=== PATIENT | female | born 1945 | race Caucasian/White ===

== ENCOUNTER 2017-11-03 07:45 | Day surgery (SDC) | payer MEDICARE, BC ==
[2017-11-03] MEDS ORDERED: Lactated Ringers 1,000 ML IV SCH (08:00)
[2017-11-03] MEDS ORDERED: Sodium Chloride 0.9% 10 ML Syringe FLUSH PRN (08:00)
[2017-11-03] MEDS ORDERED: fentaNYL 100 MCG/2 ML SDV ONE ×2 (08:23→09:10)
[2017-11-03] MEDS ORDERED: Midazolam 1 MG/ML 2 ML SDV ONE ×2 (08:23→09:10)
[2017-11-03] MEDS ORDERED: Propofol 200 MG/20 ML SDV ONE ×2 (08:24→09:10)
[2017-11-03] MEDS ORDERED: Lidocaine 2% 5 ML SDV ONE (09:10)
--- NOTE | 2017-11-03 09:14 | PCM.PN ---
- General Info Date of Service: 11/03/17 - Review of Systems Systems Review Comment:: 72-year-old female with history of dysphasia referred for EGD with possible dilation. This patient had esophageal dilation about 2 years ago with improvement in her symptoms. She is again noticing some difficulty swallowing. She is medically stable to proceed today with no significant change in her health status since her recent history and physical which is reviewed. I discussed the proposed upper endoscopy with the patient. She agrees to proceed accepting risks. - Patient Data Vitals - Most Recent: Last Vital Signs Temp 98.2 F 11/03/17 08:27 Pulse 58 L 11/03/17 08:27 Resp 20 11/03/17 08:27 BP 142/70 H 11/03/17 08:27 Pulse Ox 94 L 11/03/17 08:27 Weight - Most Recent: 90.265 kg Med Orders - Current: Current Medications Lactated Ringer's (Ringers, Lactated) 1,000 mls @ 125 mls/hr IV ASDIRECTED LUIS Last Admin: 11/03/17 08:42 Dose: 125 mls/hr Sodium Chloride (Saline Flush) 10 ml FLUSH ASDIRECTED PRN PRN Reason: Keep Vein Open Discontinued Medications Fentanyl (Sublimaze) Confirm Administered Dose 100 mcg .ROUTE .STK-MED ONE Stop: 11/03/17 08:24 Midazolam HCl (Versed 1 Mg/Ml) Confirm Administered Dose 2 mg .ROUTE .STK-MED ONE Stop: 11/03/17 08:24 Propofol (Diprivan 20 Ml) Confirm Administered Dose 200 mg .ROUTE .STK-MED ONE Stop: 11/03/17 08:25 - Problem List Review Problem List Initiated/Reviewed/Updated: Yes - My Orders Last 24 Hours: My Active Orders 11/03/17 08:00 Patient Status [ADT] Routine Peripheral IV Care [RC] . DIRECTED Verify Patient Consent Obtain [RC] ASDIRECTED Lactated Ringers [Ringers, Lactated] 1,000 ml IV ASDIRECTED Sodium Chloride 0.9% [Saline Flush] 10 ml FLUSH ASDIRECTED PRN Peripheral IV Insertion Adult [OM.PC] Routine - Assessment Assessment:: Dysphasia - Plan Plan:: EGD with possible dilation
--- NOTE | 2017-11-03 09:49 | PCM.OPNOTE ---
- General Post-Op/Procedure Note Date of Surgery/Procedure: 11/03/17 Operative Procedure(s): EGD with Bx and Balloon Esophageal Dilation Findings: Mild distal esophageal stricture Small gastric ulcer in antrum Pre Op Diagnosis: Dysphagia Post-Op Diagnosis: Esophageal stricture. Gastric Ulcer Anesthesia Technique: MAC Primary Surgeon: Jovani Stanford Pathology: Biopsies of Gastric Antrum Output, Urine Amount: 0 EBL in mLs: 2 Complications: None Condition: Good
[2017-11-03 10:57] VITALS: BP 136/81
--- NOTE | 2017-11-03 15:29 | OR ---
Date of Procedure: 11/03/2017 PREOPERATIVE DIAGNOSIS: Dysphagia. POSTOPERATIVE DIAGNOSES: Distal esophageal stricture and gastric ulcer. OPERATION PERFORMED: Esophagogastroduodenoscopy with balloon esophageal dilation and biopsy. INDICATIONS FOR SURGERY: This is a 72-year-old female who has been having some increasing symptoms of dysphagia. She did note relief from the symptoms with a previous esophageal dilation, and she comes for repeat upper endoscopy. FINDINGS: The patient has a mild stricture at the GE junction, although the endoscope easily passed this area even prior to dilation. There was mild irritation at the GE junction, but no evidence of extrinsic or intrinsic mass is seen. The remainder of the esophagus including the upper part of the esophagus looked normal as did the oropharynx. In the stomach, the patient had a small gastric ulcer noted in the gastric antrum just above the pylorus anteriorly. There was no active bleeding seen, and the ulcer was shallow and approximately 3 to 4 mm in size. The remainder of the gastric mucosa appeared satisfactory. The duodenum also normal. PROCEDURE IN DETAIL: The patient was taken to the operating room. She was given intravenous sedation, and her throat was topically anesthetized. The esophagus was intubated with the Olympus gastroscope. This was carefully advanced under direct visualization through the esophagus, stomach, and into the duodenum, where examination to the fourth portion was performed. After carefully examining the duodenum, the scope was withdrawn into the stomach where full examination including retroflexed examination of the fundus is performed. A very small ulcer is noted in the gastric antrum, and biopsies of the antrum were taken to rule out H. pylori. The GE junction was then carefully examined, and the small stricture is identified. Since the patient did have improvement of her symptoms with previous dilation, this procedure is again performed today. The Cook dilating balloon is advanced down into the distal esophagus, and the balloon is dilated to 5 atmospheres pressure dilating the balloon to 54-Amharic. This was held in position at the level of the stricture for an extended period of time. The balloon was then released and withdrawn. Careful examination showed no sign of injury to the esophagus. The esophagus was then examined as the scope was withdrawn. The scope was removed, and the patient was taken from the operating room in satisfactory condition. ESTIMATED BLOOD LOSS: 2 mL. COMPLICATIONS: None. PROGNOSIS: Good. ARASH Stanford MD /[id number]
== END 2017-11-03 10:42 | disposition home or self-care (01) ==
LOC: LL.SDS 07:45
PROVIDERS: ATTEND Surgery
DX: K52.9 Noninfective gastroenteritis and colitis, unspecified (principal); K31.9 Disease of stomach and duodenum, unspecified; K22.2 Esophageal obstruction; I10 Essential (primary) hypertension; E78.2 Mixed hyperlipidemia; F43.23 Adjustment disorder with mixed anxiety and depressed mood; Z79.82 Long term (current) use of aspirin; Z79.899 Other long term (current) drug therapy; Z88.2 Allergy status to sulfonamides; Z88.1 Allergy status to other antibiotic agents
CPT/HCPCS: 43233; 43239; J2250; J2704; J3010; J7120; 00731; 88305

== ENCOUNTER 2019-02-10 10:41 | Emergency (ER) | payer BC, MEDICARE, OTHER ==
[2019-02-10 11:14] LABS: CHLORIDE,CL 102 mmol/L (98-107); SODIUM,NA 139 mmol/L (136-145)
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
[2019-02-10] MEDS ORDERED: Potassium Chloride 20 MEQ Tab.ER PO ONE (11:55)
== END 2019-02-10 12:18 | disposition home or self-care (01) ==
LOC: LL.ED 10:41
DX: S80.01XA Contusion of right knee, initial encounter (principal); S80.02XA Contusion of left knee, initial encounter; E87.6 Hypokalemia; I10 Essential (primary) hypertension; E78.5 Hyperlipidemia, unspecified; J44.9 Chronic obstructive pulmonary disease, unspecified; V43.53XA Car driver injured in collision with pick-up truck in traffic accident, initial encounter; Z88.2 Allergy status to sulfonamides; Z88.8 Allergy status to other drugs, medicaments and biological substances; Z79.899 Other long term (current) drug therapy; Z79.82 Long term (current) use of aspirin
CPT/HCPCS: 36000; 36415; 71046; 80053; 81001; 85025; 99285; A9270

== ENCOUNTER 2019-12-19 19:40 | Emergency (ER) | payer MEDICARE, BC ==
[2019-12-19] MEDS: GI Cocktail Oral Solution 30 ML PO ONE (20:07)
[2019-12-19 20:11] LABS: CHLORIDE,CL 103 mmol/L (98-107); SODIUM,NA 138 mmol/L (136-145)
--- NOTE | 2019-12-19 20:52 | EDM.PDOC ---
ED HPI GENERAL MEDICAL PROBLEM - General Chief Complaint: Abdominal Pain Stated Complaint: Abd pain Time Seen by Provider: 12/19/19 19:45 Source of Information: Reports: Patient History Limitations: Reports: No Limitations - History of Present Illness INITIAL COMMENTS - FREE TEXT/NARRATIVE: Pt with epigastric pain for past several days No fever No cough No chest pain Has been taking more medication lately for arthritis pain Pain is in upper abdomen Does not radiate No N/V/D No dysuria - Related Data Allergies Allergy/AdvReac Type Severity Reaction Status Date / Time Sulfa (Sulfonamide Allergy Cannot Unverified 12/19/19 20:06 Antibiotics) Remember noroxin Allergy Unknown GI upset Uncoded 12/19/19 20:06 Home Meds: Home Meds Omeprazole 20 mg PO DAILY 08/24/16 [History] Venlafaxine [Effexor XR] 75 mg PO DAILY 08/24/16 [History] Aspirin 81 mg PO DAILY 11/03/17 [History] hydroCHLOROthiazide [Hydrochlorothiazide] 25 mg PO DAILY 11/03/17 [History] Potassium Chloride [Klor-Con 10] 10 meq PO DAILY #60 tablet.er 02/10/19 [Rx] Acetaminophen [Tylenol Arthritis] 650 mg PO BEDTIME 12/19/19 [History] Leflunomide 20 mg PO DAILY 12/19/19 [History] Magnesium 250 mg PO DAILY 12/19/19 [History] Past Medical History HEENT History: Reports: Impaired Vision Other HEENT History: Glasses Cardiovascular History: Reports: Angina, Hypertension Other Cardiovascular History: Hyperlipidemia/dyslipidemia not under medical therapy, cardiomegaly by chest x-ray, elevated blood pressure with anxiety Respiratory History: Reports: None Other Respiratory History: COPD by chest x-ray Gastrointestinal History: Reports: Cholelithiasis Other Gastrointestinal History: GERD with esophageal stenosis requiring dilatation as below, borderline dysphagia Genitourinary History: Reports: UTI, Recurrent Other Genitourinary History: Possible urolithiasis with spontaneous passage in April 2016 with no physician evaluation at that time, previous left-sided hydronephrosis and additional left ureteral injury at time of hysterectomy as below with subsequent repair, benign renal cysts 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: Dysfunctional Uterine Bleeding, Fibroids, , Spontaneous Other AUTOMOTIVE SERVICE WRITER History: SAB at about 2 months gestation with D&C as below, otherwise Full term without complications during pregnancies or deliveries , surgical menopause as below secondary to uterine fibroids and dysfunctional uterine bleeding Musculoskeletal History: Reports: Arthritis Neurological History: Reports: None Psychiatric History: Reports: Anxiety Other Psychiatric History: 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 Endocrine/Metabolic History: Reports: Obesity/BMI 30+ Hematologic History: Reports: Anemia, Blood Transfusion(s) Other Hematologic History: Blood transfusions after knee surgeries as below Immunologic History: Reports: None Oncologic (Cancer) History: Reports: Squamous Cell Carcinoma Other Oncologic History: Excision of squamous cell carcinoma from the right arm in 2011 Dermatologic History: Reports: None - Infectious Disease History Infectious Disease History: Reports: Chicken Pox, Measles, Mumps - Past Surgical History Other HEENT Surgeries/Procedures: wears glasses GI Surgical History: Reports: Cholecystectomy, Colonoscopy, EGD Female Surgical History: Reports: Hysterectomy, Other (See Below) Other Female Surgeries/Procedures: surgical repair or ureter Musculoskeletal Surgical History: Reports: Knee Replacement - Past Imaging History Past Imaging History: Reports: CAT Scan, Mammogram, MRI, Swallow Study, Ultrasound, Upper GI X-Ray/Series Social & Family History - Family History HEENT: Reports: Macular Degeneration, Other (See Below) Other HEENT Family History: Father with macular degeneration Cardiac: Reports: CAD, Hypertension, [place], Other (See Below) Other Cardiac Family History: Brother with possible fatal IN at age 62, father with coronary artery disease, maternal grandfather with fatal IN at age 71, parents with hypertension Respiratory: Reports: COPD, Other (See Below) Other Respiratory Family Hisory: Brother with COPD with history of tobacco use : Reports: None OBGYN: Reports: Dysfunctional uterine bleeding, Fibroids, Other (See Below) Other OBGYN Family History: Mother with history of hysterectomy at age 32 secondary to dysfunctional uterine bleeding Musculoskeletal: Reports: Gout, Osteoarthritis, Other (See Below) Other Musculoskeletal Family History: Father with osteoarthritis and gout Neurological: Reports: None Psychiatric: Reports: Anxiety, Depression, Suicide Attempt, Other (See Below) Other Psychiatric Family History: Paternal uncle with fatal suicide at age 24, 3 members on paternal aunt's side with suicide, maternal uncle with suicide at age 84 Endocrine/Metabolic: Reports: None Hematologic: Reports: None Immunologic: Reports: None Dermatologic: Reports: None Oncologic: Reports: Other (See Below) Other Oncologic Family History: Mother with laryngeal cancer likely secondary to tobacco use - Caffeine Use Caffeine Use: Reports: Soda Other Caffeine Use: 2 sodas per day - Living Situation & Occupation Living situation: Reports: , with Family Occupation: Retired ED ROS GENERAL - Review of Systems Review Of Systems: See Below HEENT: Reports: No Symptoms Respiratory: Reports: No Symptoms Cardiovascular: Reports: No Symptoms GI/Abdominal: Reports: Abdominal Pain : Reports: No Symptoms Musculoskeletal: Reports: No Symptoms ED EXAM, GI/ABD - Physical Exam Exam: See Below Exam Limited By: No Limitations General Appearance: Alert, No Apparent Distress Throat/Mouth: Normal Oropharynx Neck: Supple Respiratory/Chest: Lungs Clear Cardiovascular: Regular Rate, Rhythm GI/Abdominal Exam: Other (Mildly tender in epigastric area) Extremities: Other (Degenerative changes) Course - Orders/Labs/Meds Labs: Laboratory Tests 12/19/19 12/19/19 Range/Units 19:45 19:45 WBC 9.6 (4.0-10.2) K/uL RBC 4.54 (3.77-5.09) M/uL Hgb 12.8 (11.7-15.5) g/dL Hct 39.7 (34.0-46.0) % MCV 87.4 (84.0-98.0) fL MCH 28.2 (28.2-33.3) pg MCHC 32.2 (31.7-36.0) g/dL RDW 13.8 (11.2-14.1) % Plt Count 225 (150-350) K/uL Neut % (Auto) 63.4 (45.0-80.0) % Lymph % (Auto) 24.2 (10.0-50.0) % [place] % (Auto) 8.9 (2.0-14.0) % Eos % (Auto) 3.0 (0.0-5.0) % Baso % (Auto) 0.5 (0.0-2.0) % Neut # (Auto) 6.07 (1.40-7.00) K/uL Lymph # (Auto) 2.32 (0.50-3.50) K/uL [place] # (Auto) 0.85 (0.00-1.00) K/uL Eos # (Auto) 0.29 (0.00-0.50) K/uL Baso # (Auto) 0.05 (0.00-0.20) K/uL Sodium 138 (136-145) mmol/L Potassium 3.5 (3.5-5.1) mmol/L Chloride 103 (98-107) mmol/L Carbon Dioxide 25.4 (21.0-32.0) mmol/L BUN 21 H (7-18) mg/dL Creatinine 0.91 (0.51-1.17) mg/dL Est Cr Clr Drug Dosing TNP Estimated GFR (MDRD) > 60 mL/min Glucose 150 H (74-106) mg/dL Calcium 9.0 (8.5-10.1) mg/dL Total Bilirubin 0.4 (0.2-1.0) mg/dL AST 27 (15-37) U/L ALT 35 (12-78) U/L Alkaline Phosphatase 87 (46-116) IU/L Total Protein 7.1 (6.4-8.2) g/dL Albumin 3.4 (3.4-5.0) g/dL Amylase 43 (25-115) U/L Lipase 127 (73-393) U/L Meds: Medications Discontinued Medications Generic Name Dose Route Start Last Admin Trade Name Freq PRN Reason Stop Dose Admin Al Hydroxide/Mg Hydroxide 30 ml 12/19/19 19:43 12/19/19 20:07 Gi Cocktail PO 12/19/19 19:44 30 ml ONETIME ONE Administration - Re-Assessments/Exams Free Text/Narrative Re-Assessment/Exam: 12/19/19 20:50 See lab Pt stable in ER Pt given GI cocktail in ER with resolution of symptoms Departure - Departure Time of Disposition: 21:00 Disposition: Home, Self-Care 01 Clinical Impression: Abdominal pain - Discharge Information *PRESCRIPTION DRUG MONITORING PROGRAM REVIEWED*: Not Applicable *COPY OF PRESCRIPTION DRUG MONITORING REPORT IN PATIENT LEODAN: Not Applicable Instructions: Abdominal Pain, Adult, [id number] Additional Instructions: Follow up in clinic Diet as tolerated OTC Prilosec as needed
[2019-12-19 21:43] VITALS: BP 156/96; PULSE 86
== END 2019-12-19 21:15 | disposition home or self-care (01) ==
LOC: LL.ED 19:40
DX: R10.13 Epigastric pain (principal); I10 Essential (primary) hypertension; J44.9 Chronic obstructive pulmonary disease, unspecified; K21.9 Gastro-esophageal reflux disease without esophagitis; F41.9 Anxiety disorder, unspecified; Z88.2 Allergy status to sulfonamides; Z88.8 Allergy status to other drugs, medicaments and biological substances; Z79.82 Long term (current) use of aspirin; Z79.899 Other long term (current) drug therapy
CPT/HCPCS: 36415; 80053; 82150; 83690; 85025; 99284; A9270-GY

== ENCOUNTER 2020-07-05 19:30 | Emergency (ER) | payer MEDICARE, BC ==
[2020-07-05 19:38] VITALS: PULSE 96
[2020-07-05 20:16] LABS: CHLORIDE,CL 99 mmol/L (98-107); SODIUM,NA 135 mmol/L (136-145)
--- NOTE | 2020-07-05 20:37 | EDM.PDOC ---
ED HPI GENERAL MEDICAL PROBLEM - General Chief Complaint: General Stated Complaint: FEVER Time Seen by Provider: 07/05/20 20:00 Source of Information: Reports: Patient History Limitations: Reports: No Limitations - History of Present Illness INITIAL COMMENTS - FREE TEXT/NARRATIVE: Patient comes to ER with concerns of low grade temp at home that started later this afternoon. Mildly achy. Noticed she sneezed more than usual today. Also reports several episodes of more frequent urination. No hematuria or burning with urination. Denies headache/sore throat/congestion. No cough/wheeze/SOB. Eating and drinking normally. No nausea/emesis/bowel changes. No abdominal/back pain. No other reported changes. No obvious exposures to others who are currently ill. Bilateral Shoulder Pain Score (Numeric/FACES): 5 - Related Data Allergies Allergy/AdvReac Type Severity Reaction Status Date / Time Sulfa (Sulfonamide Allergy Cannot Verified 06/10/20 14:04 Antibiotics) Remember noroxin Allergy Unknown GI upset Uncoded 06/10/20 14:04 Home Meds: Home Meds Omeprazole 20 mg PO DAILY 08/24/16 [History] Venlafaxine [Effexor XR] 75 mg PO DAILY 08/24/16 [History] Aspirin 81 mg PO DAILY 11/03/17 [History] hydroCHLOROthiazide [Hydrochlorothiazide] 25 mg PO DAILY 11/03/17 [History] Potassium Chloride [Klor-Con 10] 10 meq PO DAILY #60 tablet.er 02/10/19 [Rx] Acetaminophen [Tylenol Arthritis] 650 mg PO BEDTIME 12/19/19 [History] Leflunomide 20 mg PO DAILY 12/19/19 [History] Magnesium 250 mg PO DAILY 12/19/19 [History] Past Medical History HEENT History: Reports: Impaired Vision Other HEENT History: Glasses Cardiovascular History: Reports: Angina, Hypertension Other Cardiovascular History: Hyperlipidemia/dyslipidemia not under medical therapy, cardiomegaly by chest x-ray, elevated blood pressure with anxiety Respiratory History: Reports: None Other Respiratory History: COPD by chest x-ray Gastrointestinal History: Reports: Cholelithiasis Other Gastrointestinal History: GERD with esophageal stenosis requiring dilatation as below, borderline dysphagia Genitourinary History: Reports: UTI, Recurrent Other Genitourinary History: Possible urolithiasis with spontaneous passage in April 2016 with no physician evaluation at that time, previous left-sided hydronephrosis and additional left ureteral injury at time of hysterectomy as below with subsequent repair, benign renal cysts 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: Dysfunctional Uterine Bleeding, Fibroids, , Spontaneous Other GREEN PIPEFITTER History: SAB at about 2 months gestation with D&C as below, otherwise Full term without complications during pregnancies or deliveries, surgical menopause as below secondary to uterine fibroids and dysfunctional uterine bleeding Musculoskeletal History: Reports: Arthritis Neurological History: Reports: None Psychiatric History: Reports: Anxiety Other Psychiatric History: 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 Endocrine/Metabolic History: Reports: Obesity/BMI 30+ Hematologic History: Reports: Anemia, Blood Transfusion(s) Other Hematologic History: Blood transfusions after knee surgeries as below Immunologic History: Reports: None Oncologic (Cancer) History: Reports: Squamous Cell Carcinoma Other Oncologic History: Excision of squamous cell carcinoma from the right arm in 2011 Dermatologic History: Reports: None - Infectious Disease History Infectious Disease History: Reports: Chicken Pox, Measles, Mumps - Past Surgical History Head Surgeries/Procedures: Reports: None Other HEENT Surgeries/Procedures: wears glasses GI Surgical History: Reports: Cholecystectomy, Colonoscopy, EGD Female Surgical History: Reports: Hysterectomy, Other (See Below) Other Female Surgeries/Procedures: surgical repair or ureter Musculoskeletal Surgical History: Reports: Knee Replacement - Past Imaging History Past Imaging History: Reports: CAT Scan, Mammogram, MRI, Swallow Study, Ultrasound, Upper GI X-Ray/Series Social & Family History - Family History HEENT: Reports: Macular Degeneration, Other (See Below) Other HEENT Family History: Father with macular degeneration Cardiac: Reports: CAD, Hypertension, [place], Other (See Below) Other Cardiac Family History: Brother with possible fatal IA at age 62, father with coronary artery disease, maternal grandfather with fatal IA at age 71, parents with hypertension Respiratory: Reports: COPD, Other (See Below) Other Respiratory Family Hisory: Brother with COPD with history of tobacco use : Reports: None OBGYN: Reports: Dysfunctional uterine bleeding, Fibroids, Other (See Below) Other OBGYN Family History: Mother with history of hysterectomy at age 32 secondary to dysfunctional uterine bleeding Musculoskeletal: Reports: Gout, Osteoarthritis, Other (See Below) Other Musculoskeletal Family History: Father with osteoarthritis and gout Neurological: Reports: None Psychiatric: Reports: Anxiety, Depression, Suicide Attempt, Other (See Below) Other Psychiatric Family History: Paternal uncle with fatal suicide at age 24, 3 members on paternal aunt's side with suicide, maternal uncle with suicide at age 84 Endocrine/Metabolic: Reports: None Hematologic: Reports: None Immunologic: Reports: None Dermatologic: Reports: None Oncologic: Reports: Other (See Below) Other Oncologic Family History: Mother with laryngeal cancer likely secondary to tobacco use - Tobacco Use Tobacco Use Status *Q: Never Tobacco User - Caffeine Use Caffeine Use: Reports: Soda Other Caffeine Use: 2 sodas per day - Living Situation & Occupation Living situation: Reports: , with Family Occupation: Retired ED ROS GENERAL - Review of Systems Review Of Systems: Comprehensive ROS is negative, except as noted in HPI. ED EXAM, GENERAL - Physical Exam Exam: See Below Exam Limited By: No Limitations General Appearance: Alert, WD/WN, Anxious, Obese Eye Exam: Bilateral Eye: EOMI, PERRL Ears: Hearing Grossly Normal Nose: Normal Inspection Throat/Mouth: Normal Inspection, Normal Lips, Normal Oropharynx, Normal Voice, No Airway Compromise Head: Atraumatic, Normocephalic Neck: Normal Inspection, Supple, Non-Tender, Full Range of Motion. No: Lymphadenopathy (L), Lymphadenopathy (R) Respiratory/Chest: No Respiratory Distress, Normal Breath Sounds, No Accessory Muscle Use, Chest Non-Tender Cardiovascular: Regular Rate, Rhythm, No Murmur GI/Abdominal: Normal Bowel Sounds, Soft, Non-Tender, No Distention (Female) Exam: Deferred Rectal (Female) Exam: Deferred Back Exam: No: CVA Tenderness (L), CVA Tenderness (R), Muscle Spasm, Paraspinal Tenderness, Vertebral Tenderness Extremities: Normal Inspection, Normal Capillary Refill Neurological: Alert, Oriented, Normal Cognition, Normal Gait, No Motor/Sensory Deficits Psychiatric: Anxious (mild) Skin Exam: Warm, Dry, Intact, Normal Color Course - Vital Signs Last Recorded V/S: Last Vital Signs Temp 37.7 C 07/05/20 19:30 Pulse 96 07/05/20 19:30 Resp 18 07/05/20 19:30 BP 148/70 H 07/05/20 20:00 Pulse Ox 98 07/05/20 19:30 - Orders/Labs/Meds Orders: Active Orders 24 hr Category Date Time Status CORONAVIRUS COVID-19 YOANNA [MOLEC] Routine Lab 07/05/20 20:30 Ordered CULTURE URINE [RM] Routine Lab 07/05/20 20:31 Ordered Isolation [COMM] Routine Oth 07/05/20 20:30 Ordered Labs: Laboratory Tests 07/05/20 07/05/20 07/05/20 Range/Units 19:40 19:55 19:55 WBC 6.5 (4.0-10.2) K/uL RBC 4.57 (3.77-5.09) M/uL Hgb 12.7 (11.7-15.5) g/dL Hct 39.3 (34.0-46.0) % MCV 86.0 (84.0-98.0) fL MCH 27.8 L (28.2-33.3) pg MCHC 32.3 (31.7-36.0) g/dL RDW 14.1 (11.2-14.1) % Plt Count 166 (150-350) K/uL Neut % (Auto) 46.6 (45.0-80.0) % Lymph % (Auto) 30.1 (10.0-50.0) % [place] % (Auto) 19.3 H (2.0-14.0) % Eos % (Auto) 3.2 (0.0-5.0) % Baso % (Auto) 0.8 (0.0-2.0) % Neut # (Auto) 3.04 (1.40-7.00) K/uL Lymph # (Auto) 1.96 (0.50-3.50) K/uL [place] # (Auto) 1.26 H (0.00-1.00) K/uL Eos # (Auto) 0.21 (0.00-0.50) K/uL Baso # (Auto) 0.05 (0.00-0.20) K/uL Sodium 135 L (136-145) mmol/L Potassium 3.5 (3.5-5.1) mmol/L Chloride 99 (98-107) mmol/L Carbon Dioxide 25.3 (21.0-32.0) mmol/L BUN 19 H (7-18) mg/dL Creatinine 0.90 (0.51-1.17) mg/dL Est Cr Clr Drug Dosing 47.36 mL/min Estimated GFR (MDRD) > 60 mL/min Glucose 122 H (74-106) mg/dL Calcium 8.3 L (8.5-10.1) mg/dL Specimen Type Urinvoid Urine Color Yellow Urine Appearance Clear Urine pH 7.0 (5.0-9.0) Ur Specific [place] 1.025 (1.005-1.030) Urine Protein Negative (NEGATIVE) mg/dL Urine Glucose (UA) Negative (NEGATIVE) mg/dL Urine Ketones Negative (NEGATIVE) mg/dL Urine Occult Blood Trace-intact H (NEGATIVE) Urine Nitrite Negative (NEGATIVE) Urine Bilirubin Negative (NEGATIVE) Urine Urobilinogen 0.2 (0.2-1.0) E.U./dL Ur Leukocyte Esterase Negative (NEGATIVE) Urine RBC 0-5 /HPF Urine WBC 5-10 H /HPF Ur Epithelial Cells Few /LPF Urine Bacteria Few (NONE TO FEW) /HPF - Re-Assessments/Exams Free Text/Narrative Re-Assessment/Exam: 07/05/20 20:31 WBC normal. Labs overall unremarkable. Very small amount white cells noted in UA specimen. No obvious UTI. Sent for culture. Discussed options with patient. May be developing URI/other viral illness. She wished to rule out possible Covid as well as Influenza. Screening tests ordered. If influenza negative patient will return home and await results for Covid test when it is ru n tomorrow at our lab. Follow up as needed if Covid test ends up being positive. No other intervention indicated at this time. Precautions reviewed. Patient comfortable with plan. 07/05/20 21:14 Influenza screen negative. Departure - Departure Time of Disposition: 21:10 Disposition: Home, Self-Care 01 Condition: Good Clinical Impression: Ill feeling - Discharge Information *PRESCRIPTION DRUG MONITORING PROGRAM REVIEWED*: Not Applicable *COPY OF PRESCRIPTION DRUG MONITORING REPORT IN PATIENT LEODAN: Not Applicable Referrals: Felicita Moody PA-C [Primary Care Provider] - Forms: ED Department Discharge Additional Instructions: Your Influenza screens were negative. They will run the Covid test tomorrow and nursing will call you with results. If it is negative, continue to observe for changes. If it is positive, the nurse will discuss what steps you need to take next. This may be a developing "normal" cold/respiratory virus. If for some reason you feel that you are having more problems urinating, please contact us. We do have a urine culture running that takes a few days to perform, but if you get obviously worse symptoms we can put you on an antibiotic. Follow up otherwise as needed. Sepsis Event Note (ED) - Evaluation Sepsis Screening Result: Possible Sepsis Risk - Focused Exam Vital Signs: Vital Signs Temp Pulse Resp BP Pulse Ox 07/05/20 20:00 148/70 H 07/05/20 19:45 133/104 H 07/05/20 19:30 37.7 C 96 18 148/115 H 98 - My Orders Last 24 Hours: My Active Orders 07/05/20 20:30 CORONAVIRUS COVID-19 YOANNA [MOLEC] Routine Isolation [COMM] Routine 07/05/20 20:31 CULTURE URINE [RM] Routine - Assessment/Plan Last 24 Hours: My Active Orders 07/05/20 20:30 CORONAVIRUS COVID-19 YOANNA [MOLEC] Routine Isolation [COMM] Routine 07/05/20 20:31 CULTURE URINE [RM] Routine
[2020-07-05 21:02] VITALS: BP 148/70
== END 2020-07-05 21:15 | disposition home or self-care (01) ==
LOC: LL.ED 19:30
DX: R69 Illness, unspecified (principal); J44.9 Chronic obstructive pulmonary disease, unspecified; K21.9 Gastro-esophageal reflux disease without esophagitis; F41.9 Anxiety disorder, unspecified; E66.9 Obesity, unspecified; Z88.2 Allergy status to sulfonamides; Z88.1 Allergy status to other antibiotic agents; Z79.82 Long term (current) use of aspirin; Z79.899 Other long term (current) drug therapy; Z90.49 Acquired absence of other specified parts of digestive tract; Z90.710 Acquired absence of both cervix and uterus; Z68.34 Body mass index [BMI] 34.0-34.9, adult
CPT/HCPCS: 36415; 80048; 81001; 85025; 87086; 87088; 87186; 87804; 99283; U0002

== ENCOUNTER 2021-05-10 16:51 | Emergency (ER) | payer MEDICARE, OTHER ==
[2021-05-10 17:33] LABS: ANION GAP 7.3 meq/L (7-15)
[2021-05-10 17:42] VITALS: BP 177/79; PULSE 78
--- NOTE | 2021-05-10 17:45 | EDM.PDOC ---
ED HPI GENERAL MEDICAL PROBLEM - General Chief Complaint: Upper Extremity Injury/Pain Stated Complaint: Right arm swelling Time Seen by Provider: 05/10/21 17:02 Source of Information: Reports: Patient History Limitations: Reports: No Limitations - History of Present Illness INITIAL COMMENTS - FREE TEXT/NARRATIVE: Patient came in to have several things evaluated. First, had itchy fore arm yesterday/earlier today and noted some puffiness around the wrist and hand area develop. Similar problem in past with left arm but all the symptoms resolved within short time on their own. No new chemical contacts and no insect bites. No pain in affected arm. Second concern is small red area on back of hand that is mildly scabbed. No drainage per patient. No pain. Says she had a staff infection once on her head and wanted to know if this could be staph too. It was noted during interview that pt has a few small red lesions that are similar lateral to right side of mouth but she says she has those "all the time". Hx includes rheumatoid arthritis. - Related Data Allergies Allergy/AdvReac Type Severity Reaction Status Date / Time Sulfa (Sulfonamide Allergy Cannot Verified 12/02/20 15:45 Antibiotics) Remember noroxin Allergy Unknown GI upset Uncoded 12/02/20 15:45 Home Meds: Home Meds Omeprazole 20 mg PO DAILY 08/24/16 [History] Venlafaxine [Effexor XR] 75 mg PO DAILY 08/24/16 [History] Aspirin 81 mg PO DAILY 11/03/17 [History] hydroCHLOROthiazide [Hydrochlorothiazide] 25 mg PO DAILY 11/03/17 [History] Potassium Chloride [Klor-Con 10] 10 meq PO DAILY #60 tablet.er 02/10/19 [Rx] Acetaminophen [Tylenol Arthritis] 650 mg PO BEDTIME 12/19/19 [History] Leflunomide 20 mg PO DAILY 12/19/19 [History] Magnesium 250 mg PO DAILY 12/19/19 [History] Mupirocin Oint [Bactroban Oint] 22 gm .XX BID #1 gm 05/10/21 [Rx] Past Medical History HEENT History: Reports: Impaired Vision Other HEENT History: Glasses Cardiovascular History: Reports: Angina, Hypertension Other Cardiovascular History: Hyperlipidemia/dyslipidemia not under medical therapy, cardiomegaly by chest x-ray, elevated blood pressure with anxiety Respiratory History: Reports: None Other Respiratory History: COPD by chest x-ray Gastrointestinal History: Reports: Cholelithiasis Other Gastrointestinal History: GERD with esophageal stenosis requiring dilatation as below, borderline dysphagia Genitourinary History: Reports: UTI, Recurrent Other Genitourinary History: Possible urolithiasis with spontaneous passage in April 2016 with no physician evaluation at that time, previous left-sided hydronephrosis and additional left ureteral injury at time of hysterectomy as below with subsequent repair, benign renal cysts [employer]ING [employer] GLAZE [employer]KER History: Reports: Dysfunctional Uterine Bleeding, Fibroids, , Spontaneous Other [employer]ZE [employer] History: SAB at about 2 months gestation with D&C as below, otherwise Full term without complications during pregnancies or deliveries, surgical menopause as below secondary to uterine fibroids and dysfunctional uterine bleeding Musculoskeletal History: Reports: Arthritis, RA Neurological History: Reports: None Psychiatric History: Reports: Anxiety Other Psychiatric History: 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 Endocrine/Metabolic History: Reports: Obesity/BMI 30+ Hematologic History: Reports: Anemia, Blood Transfusion(s) Other Hematologic History: Blood transfusions after knee surgeries as below Immunologic History: Reports: None Oncologic (Cancer) History: Reports: Squamous Cell Carcinoma Other Oncologic History: Excision of squamous cell carcinoma from the right arm in 2011 Dermatologic History: Reports: None - Infectious Disease History Infectious Disease History: Reports: Chicken Pox, Measles, Mumps - Past Surgical History Head Surgeries/Procedures: Reports: None HEENT Surgical History: Reports: Oral Surgery, Other (See Below) Other HEENT Surgeries/Procedures: wears glasses Cardiovascular Surgical History: Reports: None Respiratory Surgical History: Reports: None GI Surgical History: Reports: Cholecystectomy, Colonoscopy, EGD Other GI Surgeries/Procedures: Laparoscopic cholecystectomy on 07/19/06, colonoscopy with additional EGD with lower esophageal dilatation on 10/10/14 Female Surgical History: Reports: Hysterectomy, Other (See Below) Other Female Surgeries/Procedures: surgical repair or ureter Endocrine Surgical History: Reports: None Neurological Surgical History: Reports: None Musculoskeletal Surgical History: Reports: Knee Replacement Other Musculoskeletal Surgeries/Procedures:: Right total knee arthroplasty and left partial knee arthroplasty in 2007 Oncologic Surgical History: Reports: None Dermatological Surgical History: Reports: Skin Biopsy - Past Imaging History Past Imaging History: Reports: CAT Scan, Mammogram, MRI, Swallow Study, Ultrasound, Upper GI X-Ray/Series Social & Family History - Family History HEENT: Reports: Macular Degeneration, Other (See Below) Other HEENT Family History: Father with macular degeneration Cardiac: Reports: CAD, Hypertension, OR, Other (See Below) Other Cardiac Family History: Brother with possible fatal OR at age 62, father with coronary artery disease, maternal grandfather with fatal OR at age 71, parents with hypertension Respiratory: Reports: COPD, Other (See Below) Other Respiratory Family Hisory: Brother with COPD with history of tobacco use : Reports: None OBGYN: Reports: Dysfunctional uterine bleeding, Fibroids, Other (See Below) Other OBGYN Family History: Mother with history of hysterectomy at age 32 secondary to dysfunctional uterine bleeding Musculoskeletal: Reports: Gout, Osteoarthritis, Other (See Below) Other Musculoskeletal Family History: Father with osteoarthritis and gout Neurological: Reports: None Psychiatric: Reports: Anxiety, Depression, Suicide Attempt, Other (See Below) Other Psychiatric Family History: Paternal uncle with fatal suicide at age 24, 3 members on paternal aunt's side with suicide, maternal uncle with suicide at age 84 Endocrine/Metabolic: Reports: None Hematologic: Reports: None Immunologic: Reports: None Dermatologic: Reports: None Oncologic: Reports: Other (See Below) Other Oncologic Family History: Mother with laryngeal cancer likely secondary to tobacco use - Caffeine Use Caffeine Use: Reports: Soda Other Caffeine Use: 2 sodas per day - Living Situation & Occupation Living situation: Reports: , with Family Occupation: Retired Review of Systems - Review of Systems Review Of Systems: Comprehensive ROS is negative, except as noted in HPI. ED EXAM, GENERAL - Physical Exam Exam: See Below Exam Limited By: No Limitations General Appearance: Alert, No Apparent Distress, Obese Eye Exam: Bilateral Eye: EOMI, PERRL Ears: Normal External Exam, Normal Canal, Hearing Grossly Normal Nose: No: Nasal Deformity, Nasal Swelling, Nasal Drainage Throat/Mouth: Normal Lips, Normal Voice, No Airway Compromise Head: Atraumatic, Normocephalic Neck: Supple, Non-Tender, Full Range of Motion Respiratory/Chest: No Respiratory Distress, Lungs Clear, Normal Breath Sounds, No Accessory Muscle Use, Chest Non-Tender Cardiovascular: Normal Peripheral Pulses, Regular Rate, Rhythm, No Murmur GI/Abdominal: Soft, Non-Tender (Female) Exam: Deferred Rectal (Female) Exam: Deferred Back Exam: No: CVA Tenderness (L), CVA Tenderness (R), Muscle Spasm Extremities: Normal Range of Motion, Normal Capillary Refill, Other (minimal swelling noted around dorsal right wrist/hand. No rash. Not warm to touch. Wrist/fingers full ROM. ) Neurological: Alert, Oriented, Normal Cognition, Normal Gait Psychiatric: Normal Affect, Normal Mood Skin Exam: Warm, Dry, Other (single small round red lesion back of right upper arm. No vesicle/pustule/drainage. No excoriation. Simlar appear lesions near lateral corner mouth on right ) Course - Vital Signs Last Recorded V/S: Last Vital Signs Temp 36.9 C 05/10/21 17:20 Pulse 78 05/10/21 17:20 Resp BP 177/79 H 05/10/21 17:20 Pulse Ox - Orders/Labs/Meds Labs: Laboratory Tests 05/10/21 05/10/21 05/10/21 Range/Units 17:20 17:20 17:20 WBC 10.4 H (4.0-10.2) K/uL RBC 4.77 (3.77-5.09) M/uL Hgb 13.5 (11.7-15.5) g/dL Hct 41.4 (34.0-46.0) % MCV 86.8 (84.0-98.0) fL MCH 28.3 (28.2-33.3) pg MCHC 32.6 (31.7-36.0) g/dL RDW 13.2 (11.2-14.1) % Plt Count 262 D (150-350) K/uL Neut % (Auto) 54.5 (45.0-80.0) % Lymph % (Auto) 31.7 (10.0-50.0) % [place] % (Auto) 8.9 (2.0-14.0) % Eos % (Auto) 4.3 (0.0-5.0) % Baso % (Auto) 0.6 (0.0-2.0) % Neut # (Auto) 5.66 (1.40-7.00) K/uL Lymph # (Auto) 3.30 (0.50-3.50) K/uL [place] # (Auto) 0.93 (0.00-1.00) K/uL Eos # (Auto) 0.45 (0.00-0.50) K/uL Baso # (Auto) 0.06 (0.00-0.20) K/uL D-Dimer, Quantitative 2560 H (0-400) ng/mL Sodium 142 (136-145) mmol/L Potassium 3.9 (3.5-5.1) mmol/L Chloride 106 (98-107) mmol/L Carbon Dioxide 28.7 (21.0-32.0) mmol/L Anion Gap 7.3 (7-15) meq/L BUN 18 (7-18) mg/dL Creatinine 1.02 (0.51-1.17) mg/dL Est Cr Clr Drug Dosing 41.15 mL/min Estimated GFR (MDRD) 53 mL/min Glucose 107 H (70-99) mg/dL Calcium 8.8 (8.5-10.1) mg/dL Total Bilirubin 0.2 (0.2-1.0) mg/dL AST 24 (15-37) U/L ALT 31 (12-78) U/L Alkaline Phosphatase 112 (46-116) IU/L Total Protein 7.0 (6.4-8.2) g/dL Albumin 3.3 L (3.4-5.0) g/dL Meds: Medications Discontinued Medications Generic Name Dose Route Start Last Admin Trade Name Freq PRN Reason Stop Dose Admin Famotidine 10 mg 05/10/21 17:58 05/10/21 18:11 Famotidine 10 Mg Tab PO 05/10/21 17:59 10 mg ONETIME ONE Administration Loratadine 10 mg 05/10/21 17:58 05/10/21 18:11 Loratadine 10 Mg Tab PO 05/10/21 17:59 10 mg ONETIME ONE Administration - Re-Assessments/Exams Free Text/Narrative Re-Assessment/Exam: 05/10/21 20:33 WBC minimall above normal. Labs otherwise normal other than elevated ddimer. Patient reported that swelling was improving on its own in wrist area. Uncertain as to cause. May be allergic in nature or related to patient's RA. Does not appear to be acting like a blood clot. Plan at this time is to give Claritin and Pepcid. Rx for Bactroban to be used on the skin lesions. Patient is to observe for changes in both the skin lesion and the hand/wrist swelling. She did not want to go to [facility] for US study to formally rule out a blood clot in affected limb but is willing to return to our facility tomorrow and be scanned. To follow up with PCP for ongoing care. Patient agreeable with plan. Departure - Departure Time of Disposition: 17:44 Disposition: Home, Self-Care 01 Condition: Good Clinical Impression: Rash and nonspecific skin eruption, Arm swelling - Discharge Information *PRESCRIPTION DRUG MONITORING PROGRAM REVIEWED*: Not Applicable *COPY OF PRESCRIPTION DRUG MONITORING REPORT IN PATIENT LEODAN: Not Applicable Prescriptions: Mupirocin Oint [Bactroban Oint] 22 gm .XX BID #1 gm Referrals: Felicita Moody PA-C [Primary Care Provider] - Forms: ED Department Discharge Additional Instructions: supervisor clam bed the antibiotic ointment tomorrow and apply it to the area of skin on your arm/see if that helps that spot. We have asked for you to get an appointment with ultrasound tomorrow so that they can make sure there is no clot affecting the right arm. If itching/swelling persist, follow up with your primary clinic provider and/or vegetable loader machine operator as we discussed. Return to ER if you have sudden worsening changes. Get your blood pressure checked a few times over the next few weeks! It was running high today. You may need medication adjustment! Sepsis Event Note (ED) - Evaluation Sepsis Screening Result: No Definite Risk - Focused Exam Vital Signs: Vital Signs Temp Pulse BP 05/10/21 17:20 36.9 C 78 177/79 H
[2021-05-10] MEDS ORDERED: Loratadine 10 MG Tab PO ONE (17:58)
[2021-05-10] MEDS ORDERED: Famotidine 10 MG Tab PO ONE (17:58)
== END 2021-05-10 18:15 | disposition home or self-care (01) ==
LOC: LL.ED 16:51
DX: R21 Rash and other nonspecific skin eruption (principal); M79.89 Other specified soft tissue disorders; I10 Essential (primary) hypertension; K21.9 Gastro-esophageal reflux disease without esophagitis; J44.9 Chronic obstructive pulmonary disease, unspecified; E66.9 Obesity, unspecified; Z88.2 Allergy status to sulfonamides; Z88.8 Allergy status to other drugs, medicaments and biological substances; Z79.899 Other long term (current) drug therapy; Z68.34 Body mass index [BMI] 34.0-34.9, adult
CPT/HCPCS: 36415; 80053; 85025; 85379; 99283; A9270-GY

== ENCOUNTER 2022-04-22 21:38 | Emergency (ER) | payer MEDICARE, OTHER ==
[2022-04-22 22:17] LABS: ANION GAP 9.6 meq/L (7-15); CHLORIDE,CL 103 mmol/L (98-107); SODIUM,NA 136 mmol/L (136-145)
[2022-04-22 22:20] LABS: ESTIMATED GFR 53 mL/min (>=60)
[2022-04-22] MEDS ORDERED: Acetaminophen 325 MG Tab PO ONE (22:46)
[2022-04-22 23:09] VITALS: BP 158/74; PULSE 84
== END 2022-04-22 23:09 | disposition home or self-care (01) ==
LOC: LL.ED 21:38
DX: U07.1 COVID-19 (principal); J44.9 Chronic obstructive pulmonary disease, unspecified; I10 Essential (primary) hypertension; E66.9 Obesity, unspecified; Z68.30 Body mass index [BMI] 30.0-30.9, adult; Z88.2 Allergy status to sulfonamides; Z88.8 Allergy status to other drugs, medicaments and biological substances; Z79.899 Other long term (current) drug therapy; Z79.82 Long term (current) use of aspirin; Z90.49 Acquired absence of other specified parts of digestive tract; Z90.710 Acquired absence of both cervix and uterus
CPT/HCPCS: 36415; 80053; 81001; 83735; 85025; 87086; 87088; 87186; 99284

== ENCOUNTER 2022-12-02 17:42 | Emergency (ER) | payer MEDICARE, OTHER ==
[2022-12-02] MEDS ORDERED: Sodium Chloride 0.9% 10 ML Syringe FLUSH PRN (17:44)
[2022-12-02] MEDS ORDERED: Aspirin 81 MG Tab.Chew PO ONE (17:47)
[2022-12-02] MEDS ORDERED: Acetaminophen 325 MG Tab PO ONE (18:40)
[2022-12-02] MEDS ORDERED: Acetaminophen 500 MG Tab PO ONE (18:48)
[2022-12-02 18:54] LABS: CHLORIDE,CL 102 mmol/L (98-107); SODIUM,NA 141 mmol/L (136-145)
[2022-12-02 18:56] LABS: ANION GAP 18.1 meq/L (7-15); ESTIMATED GFR 60 mL/min (>=60)
[2022-12-02 20:20] VITALS: BP 140/71; PULSE 81
[2022-12-02] MEDS ORDERED: Sodium Chloride 0.9% 500 ML IV SCH (20:45)
[2022-12-02] MEDS ORDERED: Potassium Chloride 20 MEQ Tab.ER PO ONE (20:46)
[2022-12-02] MEDS ORDERED: Magnesium Oxide 400 MG Tab PO ONE (20:46)
== END 2022-12-02 21:40 | disposition home or self-care (01) ==
LOC: LL.ED 17:42
DX: M25.511 Pain in right shoulder (principal); I10 Essential (primary) hypertension; J44.9 Chronic obstructive pulmonary disease, unspecified; E78.5 Hyperlipidemia, unspecified; E66.9 Obesity, unspecified; Z68.30 Body mass index [BMI] 30.0-30.9, adult; Z88.2 Allergy status to sulfonamides; Z88.8 Allergy status to other drugs, medicaments and biological substances; Z79.899 Other long term (current) drug therapy; Z79.82 Long term (current) use of aspirin
CPT/HCPCS: 36415; 71046; 80053; 83605; 83735; 83880; 84443; 84484; 85025; 85379; 85610; 93005; 93010; 99284; A9270-GY

== ENCOUNTER 2024-04-13 14:24 | Emergency (ER) | payer MEDICARE, OTHER ==
[2024-04-13 14:45] LABS: BASOPHILS ABSOLUTE AUTO 0.09 K/uL (0.00-0.20); BASOPHILS PERCENT AUTO 0.9 % (0.0-2.0); EOSINOPHILS ABSOLUTE AUTO 0.38 K/uL (0.00-0.50); EOSINOPHILS PERCENT AUTO 3.7 % (0.0-5.0); HEMATOCRIT 40.4 % (34.0-46.0); HEMOGLOBIN 12.9 g/dL (11.7-15.5); LYMPHOCYTES ABSOLUTE AUTO 3.75 K/uL (0.50-3.50); LYMPHOCYTES PERCENT AUTO 36.5 % (10.0-50.0); MEAN CORPUSCULAR HEMOGLOBIN 28.8 pg (28.2-33.3); MEAN CORPUSCULAR HGB CONC 31.9 g/dL (31.7-36.0); MEAN CORPUSCULAR VOLUME 90.2 fL (84.0-98.0); MONOCYTES ABSOLUTE AUTO 0.93 K/uL (0.00-1.00); NEUTROPHILS ABSOLUTE AUTO 5.13 K/uL (1.40-7.00); NEUTROPHILS PERCENT AUTO 49.9 % (45.0-80.0); PLATELET COUNT,PLT 264 K/uL (150-350); RED BLOOD CELL COUNT 4.48 M/uL (3.77-5.09); RED CELL DISTRIBUTION WIDTH 13.2 % (11.2-14.1); WHITE BLOOD CELL COUNT,WBC 10.3 K/uL (4.0-10.2)
[2024-04-13] MEDS ORDERED: Aspirin 81 MG Tab.Chew PO ONE (15:03)
[2024-04-13 15:07] LABS: LACTIC ACID 0.7 mmol/L (0.4-2.0); PROTHROMBIN TIME 9.6 SEC (9.0-11.1)
[2024-04-13 15:17] LABS: ALANINE AMINOTRANSFERASE,ALT 26 U/L (12-78); ALBUMIN 3.3 g/dL (3.4-5.0); ALKALINE PHOSPHATASE 90 IU/L (46-116); ASPARTATE AMNIOTRANSFERASE,AST 20 U/L (15-37); BILIRUBIN TOTAL 0.2 mg/dL (0.2-1.0); BLOOD UREA NITROGEN,BUN 22 mg/dL (7-18); CALCIUM 8.7 mg/dL (8.5-10.1); CARBON DIOXIDE,CO2 27.9 mmol/L (21.0-32.0); CHLORIDE,CL 103 mmol/L (98-107); CREATININE 0.92 mg/dL (0.51-1.17); GLUCOSE RANDOM 86 mg/dL (70-99); MAGNESIUM 1.6 mg/dL (1.8-2.4); POTASSIUM,K 3.4 mmol/L (3.5-5.1); PRO B-TYPE NATRIUR PEPT,BNPPRO 723 pg/mL (0-125); PROTEIN TOTAL,TP 7.2 g/dL (6.4-8.2); SODIUM,NA 138 mmol/L (136-145)
[2024-04-13 15:18] LABS: ANION GAP 10.5 meq/L (7-15); ESTIMATED GFR 64 mL/min (>=60)
[2024-04-13] MEDS: Aspirin 81 MG Tab.Chew PO STA (15:19)
[2024-04-13] MEDS: Potassium Bicarbonate/Cit Ac 20 MEQ Effervescent Tab PO ONE (16:00)
[2024-04-13] MEDS: Furosemide 40 MG/4 ML VIAL IVPUSH ONE (16:00)
[2024-04-13] MEDS: Sodium Chloride 0.9% 10 ML Syringe FLUSH PRN (16:06)
[2024-04-13] MEDS: Aluminum Hydroxide/Magnesium Hydroxide/Simethicone Susp 30 ML Cup PO ONE (16:46)
[2024-04-13] MEDS: Lidocaine 2% Viscous Solution 15 ML UD PO ONE (16:46)
[2024-04-13] MEDS: LORazepam 2 MG/ML SDV IVPUSH ONE (17:17)
[2024-04-13 18:47] VITALS: BP 157/95; PULSE 66
== END 2024-04-13 18:30 | disposition home or self-care (01) ==
LOC: LL.ED 14:24
DX: R07.2 Precordial pain (principal); T47.1X5A Adverse effect of other antacids and anti-gastric-secretion drugs, initial encounter; F41.9 Anxiety disorder, unspecified
CPT/HCPCS: 36415; 71046; 80053; 83605; 83735; 83880; 84484; 85025; 85610; 93005; 96374; 96375; 99285-25; A9270-GY; J1940; J2060; J3490